=== PATIENT | female | born 1950 | race Caucasian/White ===

== ENCOUNTER 2018-12-27 08:07 | Inpatient (IN) | payer MEDICARE, OTHER ==
[~2018-12-27] VITALS: Ht 162.6 cm; Wt 64.9 kg
[2018-12-27] MEDS ORDERED: RISP1TAB7 PO (08:19)
[2018-12-27] MEDS ORDERED: OXCA150T5 PO (08:19)
[2018-12-27] MEDS ORDERED: LAMO100T2 PO (08:19)
[2018-12-27] MEDS ORDERED: CLON1TAB PO (08:19)
[2018-12-27] MEDS ORDERED: THYR60TA2 PO (08:19)
--- NOTE | 2018-12-27 08:40 | NUR ---
Pt ate breakfast, but poor appetite.
[2018-12-27] MEDS ORDERED: CLONAZEPAM 0.5 MG TABLET PO ONE (09:00)
[2018-12-27] MEDS ORDERED: CLONAZEPAM 0.5 MG TABLET ONE (09:00)
--- NOTE | 2018-12-27 09:30 | NUR ---
Patient is resting comfortably in bed with eyes closed, NAD noted.
--- NOTE | 2018-12-27 09:32 | NUR ---
Pt is medically cleared by Dr Cerna, and will be admitted to [facility].
[2018-12-27 10:00] VITALS: BP 110/60
--- NOTE | 2018-12-27 11:00 | NUR ---
1000 Admiited a 68 year old female , brought by w/c from ER , placed on 5150 for danger to self by overdose klonopin and alcohol. Patient alert and ox4. Respiration even and non labored. Denies s/s of pain. Upon face to face, patient calm, cooperative pleasant approached. She denies SI/HI. Body assesment done, no skin problem. [address] Morin notified of the admission
[2018-12-27] MEDS ORDERED: BLOOD SUGAR DIAGNOSTIC 1 EACH STRIP VI ONE (11:15)
[2018-12-27] MEDS ORDERED: MAGNESIUM HYDROXIDE 30 ML LIQUID UDC PO PRN (11:15)
[2018-12-27] MEDS ORDERED: MAG HYDROX/AL HYDROX/SIMETH 30 ML LIQUID UDC PO PRN (11:15)
[2018-12-27] MEDS ORDERED: LORAZEPAM 0.5 MG TABLET PO PRN (11:15)
[2018-12-27 16:00] VITALS: BP 107/68
--- NOTE | 2018-12-27 16:13 | NUR ---
Initial discharge note Patient currently lives at home [[address] [place] [address]] with her Douglas Wang [[phone]]. Per patient, she would like to return home upon discharge with mental health referrals such as therapist. Patient will follow up with her psychiatrist and primary care physician upon discharge. SW will speak with patient, family, and MD regarding appropriate discharge plan and will ensure a safe and proper discharge plan.
[2018-12-27 20:00] VITALS: BP 119/66
[2018-12-27] MEDS: TEMAZEPAM 7.5 MG CAPSULE PO PRN (22:10)
[2018-12-27] MEDS: CLONAZEPAM 1 MG TABLET PO SCH (22:30)
[2018-12-27] MEDS: risperiDONE 0.5 MG TABLET PO SCH (22:30)
[2018-12-27] MEDS: FLUVOXAMINE MALEATE 25 MG TABLET PO SCH (22:45)
--- NOTE | 2018-12-27 23:06 | NUR ---
Pharmacy note: Klonopin and Risperdal not given because unverified by pharmacy. Consent faxed and confirmed.
[2018-12-28 07:46] VITALS: BP 114/69
[2018-12-28] MEDS: FLUVOXAMINE MALEATE 25 MG TABLET PO SCH ×3 (08:05→16:08)
[2018-12-28] MEDS: risperiDONE 0.5 MG TABLET PO SCH ×2 (08:49→20:25)
[2018-12-28] MEDS: LAMOTRIGINE 100 MG TABLET PO SCH (08:49)
--- NOTE | 2018-12-28 08:50 | NUR ---
held 0900 am meds b/c consent needs to be signed first
[2018-12-28] MEDS ORDERED: THYROID 60 MG TABLET PO SCH (09:00)
[2018-12-28 16:00] VITALS: BP 116/75
[2018-12-28] MEDS ORDERED: THYR30TA2 PO (19:00)
[2018-12-28 20:18] VITALS: BP 116/73
[2018-12-28] MEDS: CLONAZEPAM 1 MG TABLET PO SCH (20:25)
[2018-12-28] MEDS: TEMAZEPAM 7.5 MG CAPSULE PO PRN (22:04)
--- NOTE | 2018-12-28 22:16 | NUR ---
Given Restoril per pt. request. Will continue to monitor for safety.
[2018-12-29] MEDS: ARMOUR THYROID 15 MG PO SCH (06:25)
--- NOTE | 2018-12-29 06:33 | NUR ---
GPS. Patient was compliant with the medication regimen, cooperative with care. Slept 9 hours, PRN Restoril 7.5 given at 2200. No SI or hallucinations reported or noted. No aggressive or self-harming behavior noted during the shift. Will continue POC and monitoring for safety. Denies SI in the morning
[2018-12-29] MEDS ORDERED: HOME MED MISCELLANEOUS PO SCH (07:00)
[2018-12-29 07:58] VITALS: BP 97/54
[2018-12-29] MEDS: FLUVOXAMINE MALEATE 25 MG TABLET PO SCH ×3 (08:29→16:24)
[2018-12-29] MEDS: LAMOTRIGINE 100 MG TABLET PO SCH (08:29)
[2018-12-29] MEDS: risperiDONE 0.5 MG TABLET PO SCH ×2 (08:29→20:38)
[2018-12-29 16:19] VITALS: BP 114/76
[2018-12-29] MEDS: CLONAZEPAM 1 MG TABLET PO SCH (20:38)
[2018-12-29 21:15] VITALS: BP 118/68
[2018-12-29] MEDS: TEMAZEPAM 7.5 MG CAPSULE PO PRN (22:07)
[2018-12-30] MEDS: ARMOUR THYROID 15 MG PO SCH (06:12)
[2018-12-30 07:30] VITALS: BP 91/51
[2018-12-30] MEDS: LAMOTRIGINE 100 MG TABLET PO SCH (08:55)
[2018-12-30] MEDS: risperiDONE 0.5 MG TABLET PO SCH ×2 (08:55→20:24)
[2018-12-30] MEDS: FLUVOXAMINE MALEATE 25 MG TABLET PO SCH ×3 (08:55→17:10)
[2018-12-30 16:10] VITALS: BP 103/56
--- NOTE | 2018-12-30 19:20 | NUR ---
RECIEVED PT ON BED. PT WITH A VISITOR. PT SHOWS NO SIGNS OF ACUTE DISTRESS. PT PLEASANT WHEN APPROACH.PT ALERT AND ORIENTEDX4. PT HAS NO SUICIDAL IDEATION. SAFETY AND COMFORT PROVIDED. WILL CONTINUE TO MONITOR.
[2018-12-30 19:46] VITALS: BP 107/67
[2018-12-30] MEDS: CLONAZEPAM 1 MG TABLET PO SCH (20:23)
[2018-12-30] MEDS: TEMAZEPAM 7.5 MG CAPSULE PO PRN (22:00)
[2018-12-31] MEDS: ARMOUR THYROID 15 MG PO SCH (06:39)
--- NOTE | 2018-12-31 07:03 | NUR ---
PT SLEPT 7 HOURS. PT IN NO ACUTE DISTRESS. PT COOPERATIVE WITH CARE.PT GIVEN RESTORIL AT 2200H PER PT REQUEST. PT WAS GIVEN MILK OF MAGNESIA PER PT REQUEST. PT HAD ONE BOWEL MOVEMENT AFTER IT WAS GIVEN.PT PRESCRIBED MEDICATION GIVEN AND PT TOLERATED IT WELL. PT HAS NO SUICIDAL IDEATION. SAFETY AND COMFORT PROVIDED.ALL NEEDS ARE MET.WILL ENDORSE ACCORDINGLY TO INCOMING NURSE FOR CONTINUITY OF CARE.
[2018-12-31 07:30] VITALS: BP 99/59
[2018-12-31] MEDS: risperiDONE 0.5 MG TABLET PO SCH ×2 (09:06→20:12)
[2018-12-31] MEDS: FLUVOXAMINE MALEATE 25 MG TABLET PO SCH ×3 (09:07→16:48)
[2018-12-31] MEDS: LAMOTRIGINE 100 MG TABLET PO SCH (09:07)
--- NOTE | 2018-12-31 10:35 | NUR ---
FIREARMS REPORT: [employer] completed and submitted a J firearms report for 5250 danger to self certification. A copy of report has been placed in patient chart.
[2018-12-31 16:11] VITALS: BP 98/55
[2018-12-31] MEDS: CLONAZEPAM 1 MG TABLET PO SCH (20:12)
[2018-12-31 20:29] VITALS: BP 103/61
[2018-12-31] MEDS: TEMAZEPAM 7.5 MG CAPSULE PO PRN (21:28)
[2019-01-01] MEDS: ARMOUR THYROID 15 MG PO SCH (06:31)
--- NOTE | 2019-01-01 06:44 | NUR ---
PATIENT SLEPT FOR APPROX 8.30 HRS THROUGH THE NIGHT. SHE IS NOTED LESS DEPRESSED LESS ISOLATIVE. DENIES SI. SHE IS ABLE TO CFS. PT IS SCHEDULE TO BE D/C TODAY. WILL CONTINUE TO MONITOR.
[2019-01-01 07:30] VITALS: BP 100/56
[2019-01-01] MEDS: FLUVOXAMINE MALEATE 25 MG TABLET PO SCH (08:22)
[2019-01-01] MEDS: LAMOTRIGINE 100 MG TABLET PO SCH (08:22)
[2019-01-01] MEDS: risperiDONE 0.5 MG TABLET PO SCH (08:22)
--- NOTE | 2019-01-01 09:38 | NUR ---
Discharge note Patient will be discharged today back home [[address] [place] [address]; [phone]]. Spoke with patient�s , Douglas Wang ([phone]) who has agreed to provide transportation and is aware and agreeable with discharge plans. Patient is alert and oriented x4, denies suicidal or homicidal ideation, and is aware and agreeable with discharge plans. Patient will continue to follow-up with her Primary Care Physician, Dr. Yolande Shields [[address], [place] [address]; ]. Patient will follow up with her current Psychiatrist, Dr. Autumn Santos MD [ ; [address] [facility] [address], [place] [address]] and has a follow up appointment set for December at 9:30AM. The patient will be following up with a new Clinical Duty Manager/Therapist, Wilfred Calvert upon discharge for mental health services. The patient was provided with a list of Medicare-accepting Clinical Psychologists, Clinical Therapists, as well as Clinical Social Workers in her area. Patient was provided with outpatient mental health resources to [facility] , and the National Suicide Prevention Lifeline .
== END 2019-01-01 13:12 | disposition home or self-care (01) | DRG 885 ==
LOC: ER 08:07 → GPS 09:40
PROVIDERS: ADMIT Psychiatry & Neurology Psychiatry; ATTEND Nurse Practitioner Acute Care
DX: F31.5 Bipolar disorder, current episode depressed, severe, with psychotic features (principal); F42.9 Obsessive-compulsive disorder, unspecified; T42.4X1D Poisoning by benzodiazepines, accidental (unintentional), subsequent encounter; T51.0X1D Toxic effect of ethanol, accidental (unintentional), subsequent encounter; F10.10 Alcohol abuse, uncomplicated; M19.90 Unspecified osteoarthritis, unspecified site; E03.9 Hypothyroidism, unspecified; Z79.899 Other long term (current) drug therapy
CPT/HCPCS: 36415; 71045; A4663